=== PATIENT | male | born 1985 | race Caucasian/White ===

== ENCOUNTER 2018-12-15 00:58 | Emergency (ER) | payer OTHER ==
[~2018-12-15] VITALS: Ht 175.3 cm; Wt 90.0 kg
[~2018-12-15 00:58] MED LIST: DOXYCYCL HYC100 M3 OR; FLEXERIL5 MG PO; METHYLPRED4 M1 OR; NAPROSYN375 MG PO; NO; PROAIR HFA IN
[2018-12-15 01:26] LABS: HEMATOCRIT 47.6 % (39.0-50.0); HEMOGLOBIN 15.7 g/dl (14.0-18.0); IMMATURE GRANULOCYTES 0.4 % (0.0-5.0); MEAN CELL VOLUME 88.5 fL CALC (80.0-100.0); MEAN CORPUSCULAR HGB 29.2 pG CALC (26.0-32.0); NEUT# 7.28 thou/uL (1.82-7.42); RED BLOOD COUNT 5.38 mill/uL (4.70-6.10)
[2018-12-15 01:44] LABS: ALBUMIN 3.8 g/dL (3.2-5.0); ALKALINE PHOSPHATASE 38 u/l (38-126); AMYLASE 33 u/l (30-110); BUN 17 mg/dL (9-20); BUN/CREATININE RATIO 13 (12-20 (CALC)); CARBON DIOXIDE 30 mmol/l (22-30); CREATININE 1.3 mg/dL (0.7-1.3); GFR > 60 ML/MIN (>=60 (CALC)); GFR FOR AFR.AMER. > 60 ML/MIN (>=60 (CALC)); LIPASE 30 u/l (23-300); POTASSIUM 3.8 mmol/l (3.5-5.1); SGOT/AST 32 u/l (17-59); SODIUM 137 mmol/l (137-146); TOTAL PROTEIN 6.7 g/dL (6.3-8.2)
[2018-12-15 01:46] LABS: ANION GAP 13 (6-22 (CALC)); CHLORIDE 98 mmol/l (95-108)
[2018-12-15] MEDS ORDERED: LOMOTIL2.5 MG PO (02:27)
[2018-12-15] MEDS ORDERED: PHENERGAN25 MG/TAB PO (02:27)
[2018-12-15 02:52] VITALS: BP 118/85
== END 2018-12-15 03:02 | disposition home or self-care (01) | DRG 392 ==
LOC: ED 00:58
PROVIDERS: Family Medicine
DX: A08.4 Viral intestinal infection, unspecified (principal)

== ENCOUNTER 2021-02-16 12:28 | Emergency (ER) | payer OTHER ==
[~2021-02-16] VITALS: Ht 175.3 cm; Wt 81.0 kg
[~2021-02-16 12:28] MED LIST changes: +LOMOTIL2.5 MG PO; +PHENERGAN25 MG/TAB PO
[2021-02-16 14:00] VITALS: BP 126/89
== END 2021-02-16 14:00 | disposition home or self-care (01) | DRG 179 ==
LOC: ED 12:28
DX: U07.1 COVID-19 (principal)

== ENCOUNTER 2021-10-11 07:04 | Emergency (ER) | payer BC ==
[2021-10-11] VITALS (9 sets, daily range): BP systolic 106–121; BP diastolic 61–80
[~2021-10-11] VITALS: Ht 175.3 cm; Wt 90.9 kg
[2021-10-11 07:36] LABS: HEMATOCRIT 46.4 % (39.0-50.0); HEMOGLOBIN 15.9 g/dl (14.0-18.0); IMMATURE GRANULOCYTES 0.1 % (0.0-5.0); MEAN CELL VOLUME 87.9 fL CALC (80.0-100.0); MEAN CORPUSCULAR HGB 30.1 pG CALC (26.0-32.0); MEAN CORPUSCULAR HGB CONC 34.3 g/dL CAL (32.0-36.0); NEUT# 10.22 thou/uL (1.82-7.42); RED BLOOD COUNT 5.28 mill/uL (4.70-6.10); RED CELL DISTRI WIDTH 12.9 % (11.5-15.5)
[2021-10-11 08:03] LABS: ALKALINE PHOSPHATASE 55 u/l (38-126); BILIRUBIN, TOTAL 0.6 mg/dL (0.0-1.4); BUN 15 mg/dL (9-20); BUN/CREATININE RATIO 18 (12-20 (CALC)); CARBON DIOXIDE 26 mmol/l (22-30); CREATININE 0.8 mg/dL (0.7-1.3); GFR FOR AFR.AMER. > 60 ML/MIN (>=60 (CALC)); GFR OTHER RACES > 60 ML/MIN (>=60 (CALC)); LIPASE 42 u/l (23-300); POTASSIUM 3.5 mmol/l (3.5-5.1); SGOT/AST 44 u/l (17-59)
[2021-10-11 08:04] LABS: ALBUMIN 4.7 g/dL (3.2-5.0); ANION GAP 14 (6-22 (CALC)); CHLORIDE 110 mmol/l (95-108); SODIUM 146 mmol/l (137-146); TOTAL PROTEIN 8.3 g/dL (6.3-8.2)
[2021-10-11] MEDS ORDERED: CYCLOBENZAPRINE10 MG PO ×2 (09:10→09:11)
[2021-10-11] MEDS ORDERED: VOLTAREN1%GEL TOP ×2 (09:10→09:11)
== END 2021-10-11 09:12 | disposition home or self-care (01) | DRG 563 ==
LOC: ED 07:04
PROVIDERS: Family Medicine
DX: S43.101A Unspecified dislocation of right acromioclavicular joint, initial encounter (principal); S00.83XA Contusion of other part of head, initial encounter; V86.55XA Driver of 3- or 4- wheeled all-terrain vehicle (ATV) injured in nontraffic accident, initial encounter
CPT/HCPCS: Q9967